=== PATIENT | male | born 1970 | race Two or more races ===

== ENCOUNTER 2018-12-12 08:47 | Outpatient (CLI) | payer OTHER | END 2018-12-12 15:00 | disposition home or self-care (01) | LOC: LAB SALUS 08:47 | DX: Z13.220 Encounter for screening for lipoid disorders (principal); Z11.59 Encounter for screening for other viral diseases; Z13.1 Encounter for screening for diabetes mellitus; Z11.4 Encounter for screening for human immunodeficiency virus [HIV]; Z72.51 High risk heterosexual behavior; Z11.3 Encounter for screening for infections with a predominantly sexual mode of transmission; Z12.11 Encounter for screening for malignant neoplasm of colon ==

== ENCOUNTER 2022-01-18 15:03 | Outpatient (CLI) | payer OTHER | END 2022-01-18 15:15 | disposition home or self-care (01) | LOC: RAD 15:03 | PROVIDERS: ATTEND Orthopaedic Surgery | DX: M25.552 Pain in left hip (principal) ==

== ENCOUNTER → 2023-03-09 09:14 | Outpatient (CLI) | payer OTHER ==
[2023-03-09 10:29] LABS: HEMATOCRIT 43.9 % (39.0-48.0); HEMOGLOBIN 15.2 g/dL (13-16.00); MEAN CELL VOLUME 92.5 fL (80.0-100.00); MEAN CORPUSCULAR HGB CONC 34.6 g/dl (32.0-36.0); PLATELET COUNT 196 K/uL (150-450); RED BLOOD COUNT 4.74 M/uL (4.00-6.00); RED CELL DISTRIBUTION WIDTH 14.7 % (11.5-14.5)
[2023-03-09 10:55] LABS: INR 0.98; PARTIAL THROMBOPLASTIN TIME 28.6 SECONDS (22.0-34.0); PROTHROMBIN TIME 10.3 SECONDS (9.0-11.5)
[2023-03-09 10:59] LABS: ALBUMIN 3.9 gm/dL (3.4-5.0); BILIRUBIN TOTAL 0.82 mg/dL (0.3-1.2); CALCIUM 9.3 mg/dL (8.5-10.1); COL EPI 100 SECONDS (82-175); CREATININE SERUM 1.14 mg/dL (0.70-1.30); GFR 66.94; GLOBULINA 3.4 G/DL (2.4-3.5); POTASSIUM 4.35 mEq/L (3.5-5.1); TOTAL PROTEIN 7.3 gm/dL (6.4-8.2)
[2023-03-09 11:23] LABS: PH,URINE 5.5 (5.0-8.0); URINE APPEARANCE Clear; URINE BILIRRUBIN Negative (NEGATIVE); URINE BLOOD Negative; URINE COLOR Yellow; URINE GLUCOSE Negative (NEGATIVE); URINE LEUKOCYTE Negative; URINE NITRATE Negative; URINE PROTEIN Trace (NEGATIVE); URINE UROBILINOGEN 0.2 E.U./dl
[2023-03-09 11:24] LABS: URINE EPITHELIAL CELLS 1.5 uL (0.0-38.8); URINE RBC 4.3 uL (0.0-20.8)
[2023-03-09 11:30] LABS: URINE BACTERIA 3.7 uL (0.0-1933)
== END | disposition home or self-care (01) ==
LOC: LAB 09:14
PROVIDERS: ATTEND Orthopaedic Surgery
DX: I49.9 Cardiac arrhythmia, unspecified (principal); I10 Essential (primary) hypertension

== ENCOUNTER 2023-03-09 10:43 | Outpatient (CLI) | payer OTHER | END 2023-03-09 10:59 | disposition home or self-care (01) | LOC: RAD 10:43 | PROVIDERS: ATTEND Orthopaedic Surgery | DX: M16.32 Unilateral osteoarthritis resulting from hip dysplasia, left hip (principal); Z76.89 Persons encountering health services in other specified circumstances ==

== ENCOUNTER 2023-03-15 11:45 | Inpatient (IN) | payer OTHER ==
[~2023-03-15] VITALS: Ht 177.8 cm; Wt 104.3 kg
[2023-03-20] MEDS ORDERED: GLIPIZIDE ER10 MG (08:01)
[2023-03-20] MEDS ORDERED: ALLOPURINOL100 MG (08:01)
[2023-03-20] MEDS ORDERED: XARELTO10 M1 (08:01)
[2023-03-20] MEDS ORDERED: METFORMIN HCL1000 M3 (08:01)
[2023-03-20] MEDS ORDERED: COLCHICINE0.6 MG (08:01)
[2023-03-20] MEDS ORDERED: VALSARTAN-HCTZ1 EAC2 (08:01)
[2023-03-21 06:43] LABS: HEMATOCRIT 38.8 % (39.0-48.0); HEMOGLOBIN 13.3 g/dL (13-16.00); MEAN CELL VOLUME 92.2 fL (80.0-100.00); MEAN CORPUSCULAR HEMOGLOBIN 31.8 pg (27.00-32.0); MEAN CORPUSCULAR HGB CONC 34.4 g/dl (32.0-36.0); PLATELET COUNT 162 K/uL (150-450); RED CELL DISTRIBUTION WIDTH 14.5 % (11.5-14.5)
[2023-03-22 06:32] LABS: HEMATOCRIT 35.8 % (39.0-48.0); HEMOGLOBIN 12.4 g/dL (13-16.00); MEAN CORPUSCULAR HEMOGLOBIN 32.5 pg (27.00-32.0); MEAN CORPUSCULAR HGB CONC 34.6 g/dl (32.0-36.0); PLATELET COUNT 165 K/uL (150-450); RED BLOOD COUNT 3.81 M/uL (4.00-6.00); RED CELL DISTRIBUTION WIDTH 14.7 % (11.5-14.5)
== END 2023-03-22 14:53 | DRG 470 ==
LOC: O/R 03-20 05:15 → SURG 03-20 07:00
PROVIDERS: ADMIT Orthopaedic Surgery; ATTEND Orthopaedic Surgery
PROC: 0SRB0JZ Replacement of Left Hip Joint with Synthetic Substitute, Open Approach (ICD-10-PCS; principal; 2023-03-20 07:00)
DX: M16.32 Unilateral osteoarthritis resulting from hip dysplasia, left hip (principal)

== ENCOUNTER → 2024-03-17 08:31 | Outpatient (CLI) | payer OTHER ==
[~2024-03-17 08:31] MED LIST: ALLOPURINOL100 MG; COLCHICINE0.6 MG; GLIPIZIDE ER10 MG; METFORMIN HCL1000 M3; VALSARTAN-HCTZ1 EAC2; XARELTO10 M1
[2024-03-17 09:28] LABS: PH,URINE 5.5 (5.0-8.0); URINE APPEARANCE Clear; URINE BILIRRUBIN Negative (NEGATIVE); URINE BLOOD Negative; URINE COLOR Yellow; URINE KETONE Negative (NEGATIVE); URINE LEUKOCYTE Negative; URINE NITRATE Negative; URINE PROTEIN Negative (NEGATIVE); URINE UROBILINOGEN 0.2 E.U./dl
[2024-03-17 09:33] LABS: HEMATOCRIT 48.4 % (39.0-48.0); HEMOGLOBIN 16.8 g/dL (13-16.00); MEAN CELL VOLUME 95.5 fL (80.0-100.00); MEAN CORPUSCULAR HEMOGLOBIN 33.1 pg (27.00-32.0); MEAN CORPUSCULAR HGB CONC 34.7 g/dl (32.0-36.0); PLATELET COUNT 160 K/uL (150-450); RED BLOOD COUNT 5.07 M/uL (4.00-6.00); RED CELL DISTRIBUTION WIDTH 14.7 % (11.5-14.5)
[2024-03-17 09:45] LABS: URINE BACTERIA 2.4 uL (0.0-1933); URINE EPITHELIAL CELLS 0.7 uL (0.0-38.8); URINE GLUCOSE >=1000 MG/DL (NEGATIVE); URINE RBC 0.8 uL (0.0-20.8); URINE WBC 0.6 uL (0.0-23.2)
[2024-03-17 09:56] LABS: INR 0.98; PARTIAL THROMBOPLASTIN TIME 26.8 SECONDS (22.0-34.0); PROTHROMBIN TIME 10.7 SECONDS (9.0-11.5)
[2024-03-17 10:19] LABS: COL EPI 160 SECONDS (82-175)
[2024-03-17 10:24] LABS: ALBUMIN 3.7 gm/dL (3.4-5.0); BILIRUBIN TOTAL 1.23 mg/dL (0.3-1.2); CREATININE SERUM 1.2 mg/dL (0.70-1.30); GFR 62.86; GLOBULINA 3.6 G/DL (2.4-3.5); POTASSIUM 4.01 mEq/L (3.5-5.1); TOTAL PROTEIN 7.3 gm/dL (6.4-8.2)
== END | disposition home or self-care (01) ==
LOC: RAD 08:31
PROVIDERS: ATTEND Orthopaedic Surgery
DX: I10 Essential (primary) hypertension (principal); Z76.89 Persons encountering health services in other specified circumstances

== ENCOUNTER 2024-04-07 09:52 | Outpatient (CLI) | payer OTHER | END 2024-04-07 10:00 | disposition home or self-care (01) | LOC: LAB 09:52 | PROVIDERS: ATTEND Orthopaedic Surgery | DX: Z22.322 Carrier or suspected carrier of Methicillin resistant Staphylococcus aureus (principal) ==

== ENCOUNTER 2024-04-15 05:47 | Day surgery (SDC) | payer OTHER ==
[2024-04-14 10:14] VITALS: BP 145/63
[~2024-04-15] VITALS: Ht 177.8 cm; Wt 97.5 kg
[~2024-04-15 05:47] MED LIST changes: +AMBIEN10 MG PO; +LIPITOR20 MG PO
[2024-04-15] MEDS ORDERED: EPINEPHRINE HCL/PF 1 MG/ML AMPUL ONE (07:00)
[2024-04-15] MEDS ORDERED: CEFOXITIN SODIUM 2,000 MG VIAL IV ONE (07:00)
[2024-04-15] MEDS ORDERED: CEFTRIAXONE SODIUM 2,000 MG VIAL ONE (07:04)
[2024-04-15] MEDS ORDERED: MORPHINE SULFATE 4 MG/ML VIAL IV ONE ×2 (10:40→11:10)
== END 2024-04-15 13:30 | disposition home or self-care (01) ==
LOC: CIR.AMB 05:47
PROVIDERS: ATTEND Orthopaedic Surgery
DX: M75.121 Complete rotator cuff tear or rupture of right shoulder, not specified as traumatic (principal); M19.011 Primary osteoarthritis, right shoulder; M65.811 Other synovitis and tenosynovitis, right shoulder; M24.811 Other specific joint derangements of right shoulder, not elsewhere classified; I10 Essential (primary) hypertension; E78.00 Pure hypercholesterolemia, unspecified; E11.9 Type 2 diabetes mellitus without complications